=== PATIENT | male | born 1995 | race Asian ===

== ENCOUNTER 2016-10-22 13:01 | Emergency (ER) | payer OTHER ==
[~2016-10-22] VITALS: Ht 170.2 cm; Wt 99.8 kg
== END 2016-10-22 14:50 | disposition home or self-care (01) ==
LOC: ED 13:01
PROC: 0H9BXZZ Drainage of Right Upper Arm Skin, External Approach (ICD-10-PCS; principal; 2016-10-22)
DX: L02.411 Cutaneous abscess of right axilla (principal)
CPT/HCPCS: 87070; 87077; 87186; 87205; 99283